=== PATIENT | female | born 1995 | race Caucasian/White ===

== ENCOUNTER 2019-12-23 07:58 | Inpatient (IN) | payer MEDICAID ==
[2019-12-21] MEDS: PENICILLIN G POTASSIUM 2.5 MMU in DEXTROSE 5% WATER 50 ML IV SCH (13:00)
[~2019-12-23] VITALS: Ht 157.5 cm; Wt 78.5 kg
[2019-12-23] MEDS ORDERED: DEXT 5%/LR + PITOCIN 20UNITS/L 1,000 ML IV SCH (08:29)
[2019-12-23] MEDS ORDERED: METHYLERGONOVINE MALEATE 0.2 MG/ML IM PRN (08:30)
[2019-12-23] MEDS ORDERED: CARBOPROST TROMETHAMINE 250 MCG/ML AMPUL IM PRN (08:30)
[2019-12-23] MEDS ORDERED: MISOPROSTOL 100MCG TABLET RC SCH (08:30)
[2019-12-23] MEDS ORDERED: LIDOCAINE HCL 1% 20ML VIAL (Pyxis) INJ INFIL SCH (08:30)
[2019-12-23] MEDS ORDERED: PENICILLIN G POTASSIUM 5 MMU in DEXT 5% WATER 100 ML IV SCH ×2 (09:00→13:30)
[2019-12-23] MEDS: LACTATED RINGERS 1,000 ML IV SCH ×3 (09:56→21:19)
[2019-12-23 10:10] LABS: BASOPHILS % 0.3 % (0.0-2.0); EOSINOPHILS % 0.4 % (0.0-5.0); HEMATOCRIT. 37.3 % (36.0-48.0); HEMOGLOBIN. 12.6 g/dL (12.0-16.0); LYMPHOCYTES % 17.8 % (20.0-50.0); MEAN CORPUSCULAR HEMOGLOBIN 27.8 pg (28.0-32.0); MEAN CORPUSCULAR VOLUME 82.4 fL (81.0-99.0); MEAN PLATELET VOLUME 10.3 fl (7.4-10.4); MONOCYTES % 7.4 % (2.0-8.0); NEUTROPHILS % 74.1 % (40.0-76.0); PLATELET 158 x1000/uL (130-400); RED BLOOD CELL COUNT 4.53 mill/uL (4.2-5.4); RED CELL DISTRIBUTION WIDTH 14.1 % (11.6-14.6)
[2019-12-23 10:16] LABS: CLARITY URINE TURBID (CLEAR); COLOR URINE YELLOW (YELLOW); KETONES URINE NEGATIVE (NEGATIVE); LEUKOCYTE ESTERASE URINE 3+ (NEGATIVE); NITRITE URINE NEGATIVE (NEGATIVE); OCCULT BLOOD URINE TRACE (NEGATIVE); PH URINE 6.5 (4.5-8.0); PROTEIN URINE 1+ (NEGATIVE); SPECIFIC GRAVITY URINE 1.022 (1.005-1.030)
[2019-12-23 10:22] LABS: INR 0.9; PARTIAL THROMBOPLASTIN TIME 26.5 sec (23.4-31.0); PROTHROMBIN TIME 9.8 sec (9.6-11.0)
[2019-12-23 10:54] LABS: *AMPHETAMINES SCREEN URINE NEGATIVE (NEGATIVE); *BARBITURATES SCREEN URINE NEGATIVE (NEGATIVE); *BENZODIAZEPINES SCREEN URINE NEGATIVE (NEGATIVE)
[2019-12-23 10:55] LABS: *COCAINE SCREEN URINE NEGATIVE (NEGATIVE); CANNABINOID URINE SCREEN NEGATIVE (NEGATIVE); METHADONE URINE SCREEN NEGATIVE (NEGATIVE); OPIATES URINE SCREEN NEGATIVE (NEGATIVE); PHENCYCLIDINE URINE SCREEN NEGATIVE (NEGATIVE)
[2019-12-23] MEDS ORDERED: PNEUMOCOCCAL 23-VAL P-SAC VAC 0.5 ML IM ONE (11:45)
[2019-12-23 12:20] LABS: HEPATITIS B SURFACE ANTIGEN NEGATIVE
[2019-12-23] MEDS ORDERED: PENICILLIN G POTASSIUM 2.5 MMU in DEXTROSE 5% WATER 50 ML IV SCH (13:30)
[2019-12-23] MEDS ORDERED: DEXT 5%/LR + PITOCIN 20UNITS/L 1,000 ML IV ONE (13:30)
[2019-12-23] MEDS ORDERED: ROPIVACAINE HCL/PF EPIDURAL 200 ML EPI SCH (14:30)
[2019-12-24] MEDS: BUTORPHANOL TARTRATE 2 MG/ML VIAL IV PRN ×4 (04:14→20:21)
[2019-12-24] MEDS: LACTATED RINGERS 1,000 ML IV SCH ×2 (04:37→18:30)
[2019-12-24] MEDS ORDERED: PREN-182 PO (05:05)
[2019-12-24] MEDS: PENICILLIN G POTASSIUM 2.5 MMU in DEXTROSE 5% WATER 50 ML IV SCH ×3 (09:43→20:21)
[2019-12-24] MEDS ORDERED: LIDOCAINE HCL 2%/EPINEPHRINE 1:100,000 20 ML VIAL INFIL ONE (10:09)
[2019-12-24] MEDS ORDERED: ROPIVACAINE HCL/PF EPIDURAL 200 ML EPI ONE (22:39)
[2019-12-25] MEDS ORDERED: FENTANYL CITRATE/PF 50MCG/ML 2ML VIAL ONE ×2 (02:40→05:29)
[2019-12-25] MEDS: PENICILLIN G POTASSIUM 2.5 MMU in DEXTROSE 5% WATER 50 ML IV SCH (03:30)
[2019-12-25] MEDS ORDERED: ACETAMINOPHEN 325MG TABLET PO NR (03:51)
[2019-12-25] MEDS ORDERED: GENTAMICIN 120MG PREMIX 100 ML IV STA (04:36)
[2019-12-25] MEDS: CLINDAMYCIN 900 MG PREMIX 50 ML IV SCH ×3 (05:01→22:57)
[2019-12-25 06:48] LABS: CHLORIDE 107 mEq/L (98-107)
[2019-12-25] MEDS: AMPICILLIN 2,000 MG in SODIUM CHLORIDE 0.9% 100 ML IV SCH ×2 (06:55→20:23)
[2019-12-25] MEDS ORDERED: GENTAMICIN 120MG PREMIX 100 ML IV SCH (07:00)
[2019-12-25 09:08] LABS: HEMATOCRIT. 39.3 % (36.0-48.0); HEMOGLOBIN. 13.1 g/dL (12.0-16.0); MEAN CORPUSCULAR HEMOGLOBIN 27.6 pg (28.0-32.0); MEAN CORPUSCULAR VOLUME 82.6 fL (81.0-99.0); MEAN PLATELET VOLUME 9.8 fl (7.4-10.4); PLATELET 139 x1000/uL (130-400); RED BLOOD CELL COUNT 4.76 mill/uL (4.2-5.4); RED CELL DISTRIBUTION WIDTH 14.2 % (11.6-14.6)
[2019-12-25 09:12] LABS: CHLORIDE 107 mEq/L (98-107)
[2019-12-25 10:24] LABS: PLATELET ESTIMATE NORMAL
[2019-12-25] MEDS ORDERED: DEXT 5%/LR + PITOCIN 20UNITS/L 1,000 ML IV SCH (12:32)
[2019-12-25] MEDS ORDERED: GLYCERIN/WITCH HAZEL LEAF MEDICATED PAD TOP PRN (12:45)
[2019-12-25] MEDS ORDERED: HEMORRHOIDAL SUPP PR PRN (12:45)
[2019-12-25] MEDS ORDERED: IBUPROFEN 400MG TABLET PO PRN (12:45)
[2019-12-25] MEDS ORDERED: LANOLIN OINT 7GM TUBE TOP PRN (12:45)
[2019-12-25] MEDS ORDERED: DIPHENHYDRAMINE 25MG CAPSULE PO PRN (12:45)
[2019-12-25] MEDS ORDERED: BENZOCAINE/LANOLIN/ALOE VERA SPRAY TOP PRN (12:45)
[2019-12-25] MEDS ORDERED: BISACODYL 10MG SUPP PR PRN (12:45)
[2019-12-25] MEDS ORDERED: ACETAMINOPHEN WITH CODEINE 300/30MG TABLET PO PRN (12:45)
[2019-12-25] MEDS: ACETAMINOPHEN WITH CODEINE 300/30MG TABLET PO PRN ×2 (13:47→17:36)
[2019-12-25 15:00] VITALS: BP 118/66
[2019-12-25 16:00] VITALS: BP 123/69
[2019-12-25] MEDS: GENTAMICIN 80MG PREMIX 100 ML IV SCH (17:36)
[2019-12-25 19:30] VITALS: BP 109/65
[2019-12-25] MEDS: DOCUSATE SODIUM 100MG CAPSULE PO SCH (20:44)
[2019-12-25] MEDS: SIMETHICONE 80MG TABLET CHEW PO SCH (20:44)
[2019-12-25] MEDS: MAGNESIUM/ALUMINUM HYDROXIDE/SIMETHICONE 30ML UDC PO SCH (20:44)
[2019-12-26] MEDS: AMPICILLIN 2,000 MG in SODIUM CHLORIDE 0.9% 100 ML IV SCH ×4 (02:15→19:52)
[2019-12-26 04:00] VITALS: BP 98/62
[2019-12-26] MEDS: GENTAMICIN 80MG PREMIX 100 ML IV SCH ×2 (05:50→17:39)
[2019-12-26 05:56] LABS: HEMATOCRIT. 28.4 % (36.0-48.0); HEMOGLOBIN. 9.6 g/dL (12.0-16.0); MEAN CORPUSCULAR HEMOGLOBIN 27.6 pg (28.0-32.0); MEAN CORPUSCULAR VOLUME 81.2 fL (81.0-99.0); MEAN PLATELET VOLUME 9.7 fl (7.4-10.4); PLATELET 120 x1000/uL (130-400); RED CELL DISTRIBUTION WIDTH 14.3 % (11.6-14.6)
[2019-12-26] MEDS: CLINDAMYCIN 900 MG PREMIX 50 ML IV SCH ×3 (06:40→22:45)
[2019-12-26 07:30] VITALS: BP 99/50
[2019-12-26] MEDS: SIMETHICONE 80MG TABLET CHEW PO SCH ×2 (08:00→20:39)
[2019-12-26] MEDS: FERROUS SULFATE 325MG TABLET PO SCH (09:04)
[2019-12-26] MEDS: ACETAMINOPHEN WITH CODEINE 300/30MG TABLET PO PRN (09:04)
[2019-12-26] MEDS ORDERED: CEPHALEXIN 250MG CAPSULE PO SCH (12:00)
[2019-12-26 14:00] VITALS: BP 100/52
[2019-12-26] MEDS: PRENATAL VIT/FE FUMARATE/FA TABLET PO SCH (15:19)
[2019-12-26 15:45] LABS: PLATELET ESTIMATE SLIGHTLY DECREASED
[2019-12-26] MEDS: MAGNESIUM/ALUMINUM HYDROXIDE/SIMETHICONE 30ML UDC PO SCH (20:39)
[2019-12-26] MEDS: DOCUSATE SODIUM 100MG CAPSULE PO SCH (20:40)
[2019-12-26 21:00] VITALS: BP 105/61
[2019-12-27 05:00] VITALS: BP 107/63
[2019-12-27 07:01] LABS: BASOPHILS % 0.1 % (0.0-2.0); EOSINOPHILS % 0.6 % (0.0-5.0); HEMATOCRIT. 26.3 % (36.0-48.0); HEMOGLOBIN. 8.8 g/dL (12.0-16.0); LYMPHOCYTES % 7.6 % (20.0-50.0); MEAN CORPUSCULAR HEMOGLOBIN 27.4 pg (28.0-32.0); MEAN CORPUSCULAR VOLUME 81.5 fL (81.0-99.0); MEAN PLATELET VOLUME 9.9 fl (7.4-10.4); MONOCYTES % 4.7 % (2.0-8.0); PLATELET 139 x1000/uL (130-400); RED BLOOD CELL COUNT 3.23 mill/uL (4.2-5.4); RED CELL DISTRIBUTION WIDTH 14.5 % (11.6-14.6)
[2019-12-27] MEDS: MAGNESIUM/ALUMINUM HYDROXIDE/SIMETHICONE 30ML UDC PO SCH ×4 (07:30→20:53)
[2019-12-27 08:00] VITALS: BP 110/66
[2019-12-27] MEDS: AMPICILLIN 2,000 MG in SODIUM CHLORIDE 0.9% 100 ML IV SCH ×3 (08:12→20:05)
[2019-12-27] MEDS: FERROUS SULFATE 325MG TABLET PO SCH ×3 (08:13→18:03)
[2019-12-27] MEDS: PRENATAL VIT/FE FUMARATE/FA TABLET PO SCH (08:13)
[2019-12-27] MEDS: SIMETHICONE 80MG TABLET CHEW PO SCH ×3 (12:21→20:54)
[2019-12-27] MEDS: CLINDAMYCIN 900 MG PREMIX 50 ML IV SCH (14:01)
[2019-12-27 15:44] VITALS: BP 115/63
[2019-12-27] MEDS: GENTAMICIN 80MG PREMIX 100 ML IV SCH (18:03)
[2019-12-27 18:25] LABS: BASOPHILS % 0.2 % (0.0-2.0); EOSINOPHILS % 0.4 % (0.0-5.0); HEMATOCRIT. 27.5 % (36.0-48.0); HEMOGLOBIN. 9.5 g/dL (12.0-16.0); LYMPHOCYTES % 8.7 % (20.0-50.0); MEAN CORPUSCULAR VOLUME 81.3 fL (81.0-99.0); MEAN PLATELET VOLUME 9.2 fl (7.4-10.4); MONOCYTES % 4.6 % (2.0-8.0); NEUTROPHILS % 86.1 % (40.0-76.0); PLATELET 177 x1000/uL (130-400); RED BLOOD CELL COUNT 3.38 mill/uL (4.2-5.4); RED CELL DISTRIBUTION WIDTH 14.3 % (11.6-14.6)
[2019-12-27] MEDS: DOCUSATE SODIUM 100MG CAPSULE PO SCH (20:52)
[2019-12-27 22:00] VITALS: BP 103/62
[2019-12-27] MEDS: CLINDAMYCIN 900 MG in SODIUM CHLORIDE 0.9% 50 ML IV SCH (22:00)
[2019-12-28] MEDS: AMPICILLIN 2,000 MG in SODIUM CHLORIDE 0.9% 100 ML IV SCH ×3 (02:11→14:06)
[2019-12-28] MEDS: GENTAMICIN 80MG PREMIX 100 ML IV SCH (06:05)
[2019-12-28] MEDS: CLINDAMYCIN 900 MG in SODIUM CHLORIDE 0.9% 50 ML IV SCH (06:49)
[2019-12-28] MEDS: MAGNESIUM/ALUMINUM HYDROXIDE/SIMETHICONE 30ML UDC PO SCH ×4 (07:30→21:42)
[2019-12-28 08:00] VITALS: BP 114/66
[2019-12-28] MEDS: SIMETHICONE 80MG TABLET CHEW PO SCH ×4 (08:00→21:43)
[2019-12-28] MEDS ORDERED: SULF1TAB48 MT (08:01)
[2019-12-28] MEDS: FERROUS SULFATE 325MG TABLET PO SCH ×3 (08:25→17:30)
[2019-12-28] MEDS: PRENATAL VIT/FE FUMARATE/FA TABLET PO SCH (08:25)
[2019-12-28 09:44] LABS: HEMATOCRIT. 29.7 % (36.0-48.0); MEAN CORPUSCULAR HEMOGLOBIN 27.3 pg (28.0-32.0); MEAN CORPUSCULAR VOLUME 81.5 fL (81.0-99.0); MEAN PLATELET VOLUME 8.8 fl (7.4-10.4); PLATELET 206 x1000/uL (130-400); RED BLOOD CELL COUNT 3.65 mill/uL (4.2-5.4); RED CELL DISTRIBUTION WIDTH 14.4 % (11.6-14.6)
[2019-12-28 12:03] LABS: PLATELET ESTIMATE NORMAL
[2019-12-28 16:00] VITALS: BP 115/61
[2019-12-28 20:00] VITALS: BP 123/82
[2019-12-28] MEDS: DOCUSATE SODIUM 100MG CAPSULE PO SCH (21:43)
[2019-12-29] VITALS: BP 100/56
[2019-12-29 04:00] VITALS: BP 132/76
[2019-12-29] MEDS: FERROUS SULFATE 325MG TABLET PO SCH (07:30)
[2019-12-29] MEDS: MAGNESIUM/ALUMINUM HYDROXIDE/SIMETHICONE 30ML UDC PO SCH (07:30)
[2019-12-29 08:00] VITALS: BP 120/76
[2019-12-29] MEDS: SIMETHICONE 80MG TABLET CHEW PO SCH (08:00)
[2019-12-29 08:06] LABS: HEMATOCRIT. 28.8 % (36.0-48.0); HEMOGLOBIN. 9.7 g/dL (12.0-16.0); MEAN CORPUSCULAR HEMOGLOBIN 27.6 pg (28.0-32.0); MEAN CORPUSCULAR VOLUME 81.6 fL (81.0-99.0); MEAN PLATELET VOLUME 8.6 fl (7.4-10.4); PLATELET 216 x1000/uL (130-400); RED BLOOD CELL COUNT 3.53 mill/uL (4.2-5.4); RED CELL DISTRIBUTION WIDTH 14.2 % (11.6-14.6)
[2019-12-29] MEDS: PRENATAL VIT/FE FUMARATE/FA TABLET PO SCH (09:00)
[2019-12-29] MEDS ORDERED: ENOXAPARIN 40MG/0.4ML SYR SUBCUT ONE (09:30)
[2019-12-29 13:40] LABS: PLATELET ESTIMATE NORMAL
== END 2019-12-29 14:26 | disposition home or self-care (01) | DRG 560 ==
LOC: OBSVTOIN 07:58 → 8 EST LDRP 07:58 → 8EST 12-25 14:37
PROVIDERS: ADMIT Obstetrics & Gynecology; ATTEND Obstetrics & Gynecology
PROC: 10D07Z6 Extraction of Products of Conception, Vacuum, Via Natural or Artificial Opening (ICD-10-PCS; principal; 2019-12-25)
PROC: 0KQM0ZZ Repair Perineum Muscle, Open Approach (ICD-10-PCS; 2019-12-25)
PROC: 3E0R3BZ Introduction of Anesthetic Agent into Spinal Canal, Percutaneous Approach (ICD-10-PCS; 2019-12-25)
PROC: 00HU33Z Insertion of Infusion Device into Spinal Canal, Percutaneous Approach (ICD-10-PCS; 2019-12-25)
DX: O77.0 Labor and delivery complicated by meconium in amniotic fluid (principal); O34.219 Maternal care for unspecified type scar from previous cesarean delivery; O70.1 Second degree perineal laceration during delivery; D62 Acute posthemorrhagic anemia; O99.13 Other diseases of the blood and blood-forming organs and certain disorders involving the immune mechanism complicating the puerperium; O90.81 Anemia of the puerperium; Z3A.39 39 weeks gestation of pregnancy; Z37.0 Single live birth
CPT/HCPCS: 36415; 76805; 76818; 80048; 80053; 80170; 80305; 81003; 84145; 85025; 86592; 86703; 86762; 86850; 86900; 87340; 99281; J0290; J0595; J1580; J1650; J2540; J2590; J2795; J3010; J3490; J7050; J7060